=== PATIENT | female | born 1960 | race Caucasian/White ===

== ENCOUNTER 2018-07-31 09:54 | Emergency (ER) | payer MEDICAID ==
[~2018-07-31] VITALS: Ht 162.6 cm; Wt 118.8 kg
[2018-07-31 09:59] VITALS: BP 147/72
--- NOTE | 2018-07-31 10:06 | NUR ---
Patient ambulated to bed 4 with family. RN evaluating patient at bedside.
--- NOTE | 2018-07-31 10:07 | NUR ---
57 Y FEMALE BIB FAMILY C/O RECURRING URI X THIS YR; CURRENTLY TAKING MEDICATION, FINISHED ANTIBIOTIC TODAY HAD BEEN TAKING FOR 5 DAYS. C/O BODYACHES, CONGESTION, PRODUCTIVE COUGH, GENERAL MALAISE. 5/10 ACHING PAIN. VSS AT THIS TIME. ACCU CHECK 271. AA0X4. BED SI DOWN, LOCKED, BED RAIL X 1, ERMD NOTIFIED. HX--DM, FATTY LIVER, HTN RX---BENZEPRIL, GLYPIZIDE, ASA, VIT D, TYLENOL
--- NOTE | 2018-07-31 10:10 | NUR ---
PT IS SINUS TACHY 106
[2018-07-31] MEDS ORDERED: NACL 0.9% 1,000 ML IV ONE ×2 (10:17→11:40)
--- NOTE | 2018-07-31 10:34 | NUR ---
delivery technician at bedside.
--- NOTE | 2018-07-31 10:37 | NUR ---
LAB AT BEDSIDE
--- NOTE | 2018-07-31 10:41 | NUR ---
PT PLACED ON MONITOR
[2018-07-31 10:58] LABS: ANION GAP 11.4 (8-16); CARBON DIOXIDE 26.1 mmol/L (21-32); POTASSIUM 3.5 mmol/L (3.5-5.1)
--- NOTE | 2018-07-31 11:00 | NUR ---
FLU SWAB COLLECTED
[2018-07-31 11:02] LABS: BASOPHILS % (AUTO) 0.3 % (0.0-2.0); EOSINOPHILS % (AUTO) 0.7 % (0.0-4.0); HEMATOCRIT 41.2 % (36-48); HEMOGLOBIN 13.9 g/dL (12.0-16.0); LYMPHOCYTES # (AUTO) 0.8 K/uL (2.5-16.5); LYMPHOCYTES % (AUTO) 11.2 % (20.5-51.1); MEAN CORPUSCULAR HEMOGLOBIN 31 pg (27-31); MEAN CORPUSCULAR HGB CONC 34 g/dL (33-37); MEAN CORPUSCULAR VOLUME 92.8 fL (80-94); MONOCYTES # (AUTO) 0.6 K/uL (0.8-1.0); MONOCYTES % (AUTO) 8.4 % (1.7-9.3); NEUTROPHILS # (AUTO) 5.6 K/uL (1.8-7.7); NEUTROPHILS % (AUTO) 79.4 % (42.2-75.2); PLATELET COUNT (AUTO) 102 K/uL (140-450); RED BLOOD CELL COUNT(AUTO) 4.44 MIL/uL (4.20-5.40); RED CELL DISTRIBUTION WIDTH 12.6 % (11.6-13.7)
[2018-07-31 11:03] LABS: PROTHROMBIN TIME 11.5 secs (10.8-13.4)
[2018-07-31 11:04] LABS: ALBUMIN 3.2 g/dL (3.4-5.0); TOTAL BILIRUBIN 0.9 mg/dL (0.0-1.0)
--- NOTE | 2018-07-31 11:32 | NUR ---
LACTIC ACID 2.2
[2018-07-31] MEDS ORDERED: KETOROLAC 30 MG/ML VIAL IVP ONE (11:40)
--- NOTE | 2018-07-31 11:58 | NUR ---
PT SIGNED CONSENT FORM FOR CT
[2018-07-31 12:02] LABS: APPEARANCE,URINE CLEAR (CLEAR); BILIRUBIN,URINE NEGATIVE (NEGATIVE); BLOOD, URINE 3+ (NEGATIVE); COLOR,URINE YELLOW (YELLOW); LEUKOCYTE ESTERASE ,URINE TRACE (NEGATIVE); NITRITE, URINE NEGATIVE (NEGATIVE); UGLUCOSE 1+ (NEGATIVE)
[2018-07-31 12:06] LABS: RBC,URINE TOO NUMEROUS TO COUN /HPF (0-5); WBC,URINE 80-100 /HPF (0-5)
--- NOTE | 2018-07-31 12:16 | NUR ---
CALLED CT FOR PT PICK-UP. CONSENT SIGNED.
--- NOTE | 2018-07-31 12:54 | NUR ---
PT RETURNED FROM CT
--- NOTE | 2018-07-31 12:55 | NUR ---
PT AMB TO RESTROOM
--- NOTE | 2018-07-31 12:59 | NUR ---
VSS AT THIS TIME. AA0X4. PT SITTING IN BED, ON MONITOR.
[2018-07-31] MEDS ORDERED: cefTRIAXone 1,000 MG VIAL ONE (13:43)
--- NOTE | 2018-07-31 14:34 | NUR ---
LAB AT BEDSIDE FOR REPEAT LACTIC ACID
--- NOTE | 2018-07-31 14:48 | NUR ---
VSS AT THIS TIME. PT SLEEPING IN BED
--- NOTE | 2018-07-31 15:36 | NUR ---
Patient discharged with v/s stable. Written and verbal after care instructions given and explained. Patient alert, oriented and verbalized understanding of instructions. Ambulatory with steady gait. All questions addressed prior to discharge. ID band removed. Patient advised to follow up with PMD. Rx of KEFLEX, ACETAMINOPHEN given. Patient educated on indication of medication including possible reaction and side effects. Opportunity to ask questions provided and answered.
[2018-07-31 15:37] VITALS: BP 133/62
== END 2018-07-31 15:36 | disposition home or self-care (01) ==
LOC: MED 09:54
DX: J20.9 Acute bronchitis, unspecified (principal); N39.0 Urinary tract infection, site not specified; I10 Essential (primary) hypertension; E11.9 Type 2 diabetes mellitus without complications; F41.9 Anxiety disorder, unspecified
CPT/HCPCS: 36415; 71045; 71275; 80053; 81001; 81025; 82948; 83605; 83690; 83880; 84484; 85025; 85379; 85610; 87040; 87086; 87804; 93005; 96365; 96375; 99284; J0696; J1885; J7030; J7060; Q0092; Q9967

== ENCOUNTER 2018-08-18 09:37 | Emergency (ER) | payer MEDICAID ==
[~2018-08-18] VITALS: Ht 162.6 cm; Wt 117.9 kg
[2018-08-18 09:46] VITALS: BP 172/78
--- NOTE | 2018-08-18 09:52 | NUR ---
PT AMB TO ER BED 1
[2018-08-18] MEDS ORDERED: KETOROLAC 30 MG/ML VIAL IM ONE (10:10)
--- NOTE | 2018-08-18 10:52 | NUR ---
PATIENT PRESENTS TO ED WITH C/O LOWER BACK PAIN, DYSURIA AND CHANDLER X2 WEEKS. PT WAS SEEN IN ED ON 07/31 FOR UTI AND HAS FINISHED ABX, BUT HAS HAD NO RELIEF FROM SYMPTOMS. PT STATES DENIES N/V. PATIENT STATES PAIN OF 7/10 AT THIS TIME; VSS; PATIENT POSITIONED FOR COMFORT; HOB ELEVATED; BEDRAILS UP X1. BED DOWN.
[2018-08-18 11:14] LABS: APPEARANCE,URINE HAZY (CLEAR); BILIRUBIN,URINE NEGATIVE (NEGATIVE); BLOOD, URINE 3+ (NEGATIVE); COLOR,URINE RED (YELLOW); LEUKOCYTE ESTERASE ,URINE 1+ (NEGATIVE); NITRITE, URINE NEGATIVE (NEGATIVE); PH,URINE 8.5 (5.0-9.0); UGLUCOSE NEGATIVE (NEGATIVE)
[2018-08-18 12:13] LABS: RBC,URINE 20-50 /HPF (0-5)
[2018-08-18 13:51] VITALS: BP 131/72
--- NOTE | 2018-08-18 13:58 | NUR ---
Patient discharged with v/s stable. Written and verbal after care instructions given and explained. Patient alert, oriented and verbalized understanding of instructions. Ambulatory with steady gait. All questions addressed prior to discharge. ID band removed. Patient advised to follow up with PMD. Rx of Cipro, Tylenol, & Naprosyn given. Patient educated on indication of medication including possible reaction and side effects. Opportunity to ask questions provided and answered.
== END 2018-08-18 13:58 | disposition home or self-care (01) ==
LOC: MED 09:37
DX: N39.0 Urinary tract infection, site not specified (principal); E11.9 Type 2 diabetes mellitus without complications; I10 Essential (primary) hypertension
CPT/HCPCS: 74176; 81001; 81025; 87086; 96372; 99284; J1885

== ENCOUNTER 2020-04-05 11:32 | Emergency (ER) | payer MEDICAID ==
[~2020-04-05] VITALS: Ht 167.6 cm; Wt 113.4 kg
[2020-04-05 11:44] VITALS: BP 145/78
--- NOTE | 2020-04-05 12:25 | NUR ---
BIBS FROM HOME WITH C/O RIGHT LOWER LEG VERICOSE VEINS W/ PAIN FOR 4 DAYS. PT ALSO REPORTS HAVING SOB AND COUGH . PT WAS TESTED POSITIVE ON 04/01/2020 AND TREATED WITH Z-PACK AND PREDNISODE. DENIES FEVER, CHILLS, N/V/D, CHEST PAIN AT THIS TIME. PMH: DM, HTN, COVID-19 MEDS: GLIPIZIDE, BENAZEPRIL, PREDNISONE, ASA, Z-PACK, VITAMIN C, ZINC, VITAMIN D
--- NOTE | 2020-04-05 12:31 | NUR ---
22G IV placed to right ac, blood and cultures drawn at this time.
[2020-04-05 12:51] LABS: BASOPHILS # (AUTO) 0.1 K/uL (0.00-0.22); BASOPHILS % (AUTO) 0.9 % (0.0-2.0); EOSINOPHILS # (AUTO) 0.1 K/uL (0-0.4); EOSINOPHILS % (AUTO) 1.3 % (0.0-4.0); HEMATOCRIT 37.6 % (36-48); LYMPHOCYTES # (AUTO) 0.5 K/uL (2.5-16.5); LYMPHOCYTES % (AUTO) 8.7 % (20.5-51.1); MEAN CORPUSCULAR HEMOGLOBIN 32 pg (27-31); MEAN CORPUSCULAR HGB CONC 35 g/dL (33-37); MONOCYTES # (AUTO) 0.5 K/uL (0.8-1.0); MONOCYTES % (AUTO) 7.8 % (1.7-9.3); NEUTROPHILS % (AUTO) 81.3 % (42.2-75.2); PLATELET COUNT (AUTO) 126 K/uL (140-450); RED BLOOD CELL COUNT(AUTO) 4.09 MIL/uL (4.20-5.40); RED CELL DISTRIBUTION WIDTH 12.4 % (11.6-13.7); WHITE BLOOD COUNT (AUTO) 6.1 K/uL (4.8-10.8)
[2020-04-05 13:23] LABS: D-DIMER > 5000 ng/ml (0-400)
[2020-04-05 13:30] LABS: ALBUMIN 2.7 g/dL (3.4-5.0); ANION GAP 15.4 (8-16); CARBON DIOXIDE 23.9 mmol/L (21-32); POTASSIUM 3.3 mmol/L (3.5-5.1); TOTAL BILIRUBIN 1.2 mg/dL (0.0-1.0)
[2020-04-05 13:33] LABS: PROTHROMBIN TIME 12.8 secs (10.8-13.4)
[2020-04-05 13:35] LABS: LACTATE DEHYDROGENASE 261 U/L (81-234)
--- NOTE | 2020-04-05 13:36 | NUR ---
*LAB CRITICAL VALUE* Lactic acic level 2.8
[2020-04-05 13:46] LABS: C-REACTIVE PROTEIN QUANT 9.8 mg/dL (0.0-0.9)
[2020-04-05 13:50] LABS: FIBRINOGEN 142 mg/dL (200-400)
[2020-04-05] MEDS ORDERED: NACL 0.9% 1,000 ML IV ONE (14:10)
[2020-04-05] MEDS ORDERED: HYDROcodone/APAP 5/325 MG 1 TAB TAB PO ONE (14:30)
--- NOTE | 2020-04-05 14:30 | NUR ---
Patient consented for CT scan contrast
--- NOTE | 2020-04-05 14:33 | NUR ---
Patient asked to void for urine sample, patient only gave 1-2 cc of urine, dipped, charted. Will get additional sample for UA and C&S
--- NOTE | 2020-04-05 14:35 | NUR ---
Patient given NS IVF wide open, started IV antibiotics and given [place] 5 PO for "pain all over my body".
[2020-04-05] MEDS ORDERED: cefTRIAXone 1,000 MG VIAL ONE (14:53)
--- NOTE | 2020-04-05 15:00 | NUR ---
Patient states she feels "much better" after her pain medication, VVS
--- NOTE | 2020-04-05 15:29 | NUR ---
IV restarted #20g right AC for CT scan, ragiology CT scan called to notify
[2020-04-05] MEDS ORDERED: DOCUSATE SODIUM 100 MG GELCAP PO PRN (16:15)
[2020-04-05] MEDS ORDERED: ACETAMINOPHEN 325 MG TAB PO PRN (16:15)
[2020-04-05] MEDS ORDERED: ALBUTEROL HFA MDI 90 MCG/ACTUATION 8 GM INH PRN (16:15)
[2020-04-05] MEDS ORDERED: LORazepam 2 MG/ML VIAL IM/IVP PRN (16:15)
[2020-04-05] MEDS ORDERED: HYDROcodone/APAP 5/325 MG 1 TAB TAB PO PRN (16:15)
[2020-04-05] MEDS ORDERED: ZOLPIDEM 5 MG TAB PO PRN (16:15)
[2020-04-05] MEDS ORDERED: MORPHINE SULFATE 2 MG/ML SYR IVP PRN (16:15)
[2020-04-05] MEDS ORDERED: ONDANSETRON 4 MG/2 ML VIAL IVP PRN (16:15)
--- NOTE | 2020-04-05 16:21 | NUR ---
Called CT scan again to have them get patient for scan
[2020-04-05] MEDS ORDERED: AZITHROMYCIN 250 MG TAB PO ONE (17:00)
[2020-04-05] MEDS: NACL 0.9% 1,000 ML IV SCH (17:02)
--- NOTE | 2020-04-05 17:10 | NUR ---
Patient to CT scan via gurney with Radiology Attendant to transport
--- NOTE | 2020-04-05 17:19 | NUR ---
Spoke with patient's daughter at length, answered questions. Asking to have patient's progress notes faxed to her. Told her we were unable to do that. Patient can be given records upon discharge. Radha daughter,
[2020-04-05 17:29] LABS: CHOL/HDL RATIO 3.8 (1-4.5); FREE T4 (FREE THYROXINE) 1.99 ng/dL (0.76-1.46); MAGNESIUM 1.8 mg/dL (1.8-2.4); PHOSPHORUS 1.5 mg/dL (2.5-4.9); THYROID STIMULATING HORMONE 0.66 uIU/mL (0.34-3.74)
--- NOTE | 2020-04-05 17:51 | NUR ---
Note hanna in EDM - 04/05/20 at 1953 by [id number] Receiving Glucerna 60cc/hr via g-tube, HOB elevated. Respeven and unlabored, O2 at 2l/min NC In NAD, VVS, patient oriented to name only and states yes to knowing she is in the hospital.
[2020-04-05] MEDS ORDERED: AZITHROMYCIN 250 MG TAB ONE (18:17)
--- NOTE | 2020-04-05 19:45 | NUR ---
Detailed report given to CHERYL Serrato for counter caser. Questions answered, meds and orders reviewed.
--- NOTE | 2020-04-05 19:45 | NUR ---
RECEIVED REPORT FROM CHERYL MISTRY FOR CONTINUATION OF CARE AT THIS TIME.
--- NOTE | 2020-04-05 20:15 | NUR ---
PT IS RESTING IN LOW-FOWLERS POSITION. PT IS CONNECTED TO THE OBSTETRICIAN GYNECOLOGIST. BED IS LOCKED AND IN LOWEST POSITION. SIDE RAILSX1. SAO2@95% RA. PT IS NOT IN ANY ACUTE DISTRESS AT THIS TIME. CALL LIGHT IS WITHIN REACH. WILL CONTINUE TO MONITOR.
[2020-04-05] MEDS ORDERED: POTASSIUM CHLORIDE 10 MEQ TABER PO ONE ×2 (21:15→23:57)
--- NOTE | 2020-04-05 22:15 | NUR ---
PT IS RESTING, VISIBLE RISE AND FALL OF CHEST NOTED. PT IS IN LOW-FOWLERS POSITION. PT IS CONNECTED TO THE NETWORK MANAGER. BED IS LOCKED AND IN LOWEST POSITION. SIDE RAILSX1. SAO2@96% RA. PT IS NOT IN ANY ACUTE DISTRESS AT THIS TIME. CALL LIGHT IS WITHIN REACH. WILL CONTINUE TO MONITOR.
--- NOTE | 2020-04-05 23:30 | NUR ---
PT AMBULATED TO THE ED RESTROOM WITH STEADY GAIT.
--- NOTE | 2020-04-05 23:38 | NUR ---
PT AMBULATED TO ED BED 3 FROM RESTROOM WITH STEADY GAIT.
[2020-04-06] MEDS: ZINC SULF 220 MG CAP PO SCH ×2 (00:08→09:08)
--- NOTE | 2020-04-06 00:15 | NUR ---
PT IS RESTING, VISIBLE RISE AND FALL OF CHEST NOTED. PT IS IN SEMI-FOWLERS POSITION. PT IS CONNECTED TO THE SUPERVISOR PAIRING AND INSPECTING. BED IS LOCKED AND IN LOWEST POSITION. SIDE RAILSX1. SAO2@96% RA. PT IS NOT IN ANY ACUTE DISTRESS AT THIS TIME. CALL LIGHT IS WITHIN REACH. WILL CONTINUE TO MONITOR.
--- NOTE | 2020-04-06 00:45 | NUR ---
PT C/O OF DISCOMFORT AT IV SITE IN RIGHT AC, NOTED INFILTRATED UPON ASSESSMENT. REMOVED IV.
--- NOTE | 2020-04-06 00:45 | NUR ---
RESTARTED FLUIDS USING HER IV LOCATED ON HER RIGHT WRIST. FLUIDS RUNNING PER MD ORDER. NO REDNESS, PAIN OR INFILTRATION NOTED AT THIS SITE. WILL CONTINUE TO MONITOR.
[2020-04-06] MEDS: NACL 0.9% 1,000 ML IV SCH (02:20)
--- NOTE | 2020-04-06 02:45 | NUR ---
PT IS RESTING, VISIBLE RISE AND FALL OF CHEST NOTED. PT IS IN LOW-FOWLERS POSITION. PT IS CONNECTED TO THE FILE CLERK. BED IS LOCKED AND IN LOWEST POSITION. SIDE RAILSX1. SAO2@95% RA. NORMAL SALINE RUNNING AT 100ML/HR PER MD ORDERS. PT IS NOT IN ANY ACUTE DISTRESS AT THIS TIME. CALL LIGHT IS WITHIN REACH. WILL CONTINUE TO MONITOR.
--- NOTE | 2020-04-06 04:45 | NUR ---
PT IS RESTING, VISIBLE RISE AND FALL OF CHEST NOTED. PT IS IN LOW-FOWLERS POSITION. PT IS CONNECTED TO THE FINISH OPENER. BED IS LOCKED AND IN LOWEST POSITION. SIDE RAILSX1. SAO2@95% RA. NORMAL SALINE RUNNING AT 100ML/HR PER MD ORDERS. PT IS NOT IN ANY ACUTE DISTRESS AT THIS TIME. CALL LIGHT IS WITHIN REACH. WILL CONTINUE TO MONITOR.
[2020-04-06] MEDS ORDERED: glipiZIDE 5 MG TAB ONE (05:01)
--- NOTE | 2020-04-06 06:15 | NUR ---
PT AMBULATED TO ED RESTROOM WITH STEADY GAIT. PT REMINDED OF THE NEED FOR A URINE SPECIMEN.
--- NOTE | 2020-04-06 06:25 | NUR ---
PT AMBULATED BACK TO ED BED 3 WITH STEADY GAIT
[2020-04-06] MEDS ORDERED: glipiZIDE 5 MG TAB PO SCH (06:30)
--- NOTE | 2020-04-06 06:55 | NUR ---
URINE SPECIMEN COLLECTED AND WALKED OVER TO LAB
--- NOTE | 2020-04-06 07:00 | NUR ---
PT REFUSED TO TAKE GLIPIZIDE MEDICATION UNTIL FOOD TRAY IS AT BEDSIDE
[2020-04-06 07:08] LABS: APPEARANCE,URINE CLEAR (CLEAR); BILIRUBIN,URINE NEGATIVE (NEGATIVE); BLOOD, URINE NEGATIVE (NEGATIVE); COLOR,URINE YELLOW (YELLOW); LEUKOCYTE ESTERASE ,URINE NEGATIVE (NEGATIVE); NITRITE, URINE NEGATIVE (NEGATIVE); UGLUCOSE NEGATIVE (NEGATIVE)
--- NOTE | 2020-04-06 07:12 | NUR ---
abdulkadir pacheco sophia swabs collected and handed over to quality assurance lab technician on the unit
--- NOTE | 2020-04-06 07:20 | NUR ---
REPORT GIVEN TO CHERYL EDDY FOR TRANFER OF CARE. PT IS ASLEEP WITH HOB IN SEMI-FOWLERS POSITION. VISIBLE RISE AND FALL OF CHEST NOTED. PT CONNECTED TO THE SINGE WINDER. SAO2@96% RA. BED IS LOCKED AND LOWEST POSITION. SIDE RAILSX1. CALL LIGHT WITHIN REACH. PT IS NOT IN ANY ACUTE DISTRESS AT THIS TIME. NS RUNNING PER MD ORDERS.
[2020-04-06 07:57] LABS: BASOPHILS # (AUTO) 0.1 K/uL (0.00-0.22); BASOPHILS % (AUTO) 1.6 % (0.0-2.0); EOSINOPHILS % (AUTO) 0.1 % (0.0-4.0); HEMOGLOBIN 12.9 g/dL (12.0-16.0); LYMPHOCYTES # (AUTO) 0.6 K/uL (2.5-16.5); LYMPHOCYTES % (AUTO) 10.3 % (20.5-51.1); MEAN CORPUSCULAR HEMOGLOBIN 32 pg (27-31); MEAN CORPUSCULAR HGB CONC 34 g/dL (33-37); MEAN CORPUSCULAR VOLUME 92.6 fL (80-94); MONOCYTES # (AUTO) 0.3 K/uL (0.8-1.0); MONOCYTES % (AUTO) 5.8 % (1.7-9.3); NEUTROPHILS # (AUTO) 4.4 K/uL (1.8-7.7); NEUTROPHILS % (AUTO) 82.2 % (42.2-75.2); PLATELET COUNT (AUTO) 135 K/uL (140-450); RED CELL DISTRIBUTION WIDTH 12.3 % (11.6-13.7); WHITE BLOOD COUNT (AUTO) 5.3 K/uL (4.8-10.8)
[2020-04-06 08:00] VITALS: BP 155/92
--- NOTE | 2020-04-06 08:20 | NUR ---
PATIENT HAS BEEN SCREENED AND CATEGORIZED MODERATE NUTRITION RISK. PATIENT WILL BE SEEN WITHIN 3-5 DAYS OF ADMISSION. 04/08/20 04/10/[address]
[2020-04-06 08:43] LABS: ALBUMIN 2.4 g/dL (3.4-5.0); ANION GAP 16.5 (8-16); CARBON DIOXIDE 21.9 mmol/L (21-32); CREATININE 0.9 mg/dL (0.6-1.3); MAGNESIUM 1.6 mg/dL (1.8-2.4); PHOSPHORUS 3.5 mg/dL (2.5-4.9); POTASSIUM 4.4 mmol/L (3.5-5.1); TOTAL BILIRUBIN 0.8 mg/dL (0.0-1.0)
[2020-04-06] MEDS ORDERED: VITAMIN D 400 IU TAB PO SCH (09:00)
[2020-04-06] MEDS ORDERED: hydroCHLOROthiazide 25 MG TAB PO SCH (09:00)
[2020-04-06] MEDS ORDERED: AZITHROMYCIN 250 MG TAB PO SCH (09:00)
[2020-04-06] MEDS ORDERED: ENOXAPARIN 40 MG/0.4 ML SYR SUBQ SCH (09:00)
[2020-04-06] MEDS ORDERED: ASCORBIC ACID 500 MG TAB PO SCH (09:00)
[2020-04-06] MEDS ORDERED: BENAZEPRIL 20 MG TAB PO SCH (09:00)
--- NOTE | 2020-04-06 11:29 | NUR ---
PT WISHES TO SIGN OUT AMA. DR. WHITE MADE AWARE.
--- NOTE | 2020-04-06 11:44 | NUR ---
Patient does not wish to proceed with medical care recommended by Melendez. Patient given information related to possible complications, up to and including , which could occur as a result of leaving hospital at this time. Patient verbalizes understanding of risks involved leaving against medical advice. Patient has signed AMA form.
--- NOTE | 2020-04-06 11:46 | NUR ---
IV removed, catheter intact and site benign. Applied folded 2x2 gauze and tape to stop bleeding.
[2020-04-06 12:46] LABS: RBC,URINE 0-5 /HPF (0-5); WBC,URINE 0-5 /HPF (0-5); YEAST,URINE Few /HPF (None Seen)
[2020-04-07] MEDS ORDERED: predniSONE 1 MG TAB PO SCH (09:00)
--- NOTE | 2020-04-08 10:37 | NUR ---
LATE ENTRY -- NS COMPLETED AT 1550 12/25 AND ROCEPHIN COMPLETED AT 1520 12/25
--- NOTE | 2020-04-11 10:17 | NUR ---
LATE ENTRY -- NS INFUSION COMPLETED AT 1802
== END 2020-04-05 16:20 | disposition admitted as inpatient to this hospital (09) ==
LOC: MED 11:32 → UNDOADMIN 16:20 → MTU 16:20 → UNDODISIN 04-06 17:33
DX: A41.9 Sepsis, unspecified organism (principal); U07.1 COVID-19; J12.9 Viral pneumonia, unspecified; J96.00 Acute respiratory failure, unspecified whether with hypoxia or hypercapnia; E11.9 Type 2 diabetes mellitus without complications; Z20.828 Contact with and (suspected) exposure to other viral communicable diseases; E87.6 Hypokalemia; I10 Essential (primary) hypertension; M32.9 Systemic lupus erythematosus, unspecified
CPT/HCPCS: 36415; 36600; 71045; 71275; 76705; 80053; 80061; 81002; 82150; 82550; 82728; 82803; 82948; 83036; 83605; 83615; 83690; 83735; 83880; 84100; 84439; 84443; 84484; 85025; 85379; 85384; 85610; 85730; 86140; 87040; 87804; 93005; 93970; 96361; 96365; 96372; 99291; J0696; J7030; Q9967; U0003; 81001; 85651; 87081; 87086; J1650; J7060; J7512